=== PATIENT | female | born 1990 | race Caucasian/White ===

== ENCOUNTER 2017-07-25 19:36 | Emergency (ER) | payer MEDICAID ==
[2017-07-25] MEDS: Sodium Chloride 0.9% 500 ML IV ONE (20:21)
[2017-07-25 20:25] LABS: % BASOPHILS 0.1 % (0.0-2.0); % EOSINOPHILS 0.7 % (0.0-5.0); % LYMPHOCYTES 13.9 % (20.0-50.0); % MONOCYTES 3.7 % (2.0-10.0); % NEUTROPHILS 81.6 % (40.0-80.0); HEMOGLOBIN 13.8 gm/dL (12-16); MEAN CELL VOLUME 90.1 fl (81-100); MEAN CORPUSCULAR HEMOGLOBIN 30.4 pg (27.0-31.0); MEAN CORPUSCULAR HGB CONC 33.7 pg (28.0-36.0); MEAN PLATELET VOLUME 7.9 fl; NEUTROPHILE ABSOLUTE 8.5 Th/cmm (1.8-8.0); PLATELET COUNT 255 Th/cmm (150-400); RED BLOOD COUNT 4.55 Mil/cmm (3.80-5.10); RED CELL DISTRIBUTION WIDTH 11.9 % (11.5-20.0); WHITE BLOOD COUNT 10.5 Th/cmm (4.8-10.8)
[2017-07-25] MEDS ORDERED: Acetaminophen 500 MG TAB ONE (20:39)
[2017-07-25 20:40] LABS: ALB/GLOB RATIO 1.4 (1.0-1.8); ALKALINE PHOSPHATASE 64 U/L (34-104); ANION GAP 8.9 (7.0-16.0); BILIRUBIN,TOTAL 0.6 mg/dL (0.3-1.0); BUN - UREA NITROGEN 12 mg/dL (7-25); BUN/CREATININE RATIO 17.1; CALCIUM SERUM 9.6 mg/dL (8.6-10.3); CARBON DIOXIDE 25.7 mEq/L (21.0-31.0); CHLORIDE 102 mEq/L (98-107); CREATININE - SERUM 0.7 mg/dL (0.6-1.2); GLUCOSE 113 mg/dL (70-105); POTASSIUM SERUM 3.6 mEq/L (3.5-5.1); SGOT 12 U/L (13-39); SGPT/ALT 18 U/L (7-52); SODIUM SERUM 133 mEq/L (136-145)
[2017-07-25] MEDS ORDERED: Pantoprazole 40 mg EC Tab PO ONE (20:41)
[2017-07-25] MEDS: Acetaminophen 500 MG TAB PO ONE (20:42)
[2017-07-25] MEDS: Pantoprazole 40 mg EC Tab PO STA (20:43)
[2017-07-25] MEDS ORDERED: metroNIDAZOLE 500mg/NS 100mL 500 MG/100 ML BAG IV ONE (20:49)
[2017-07-25] MEDS: metroNIDAZOLE 500mg/NS 100mL 500 MG/100 ML BAG IV SCH (20:50)
[2017-07-25] MEDS ORDERED: metroNIDAZOLE 500mg/NS 100mL 500 MG/100 ML BAG IV SCH (21:00)
[2017-07-25] MEDS ORDERED: Potassium Chloride 20 mEq ER Tab PO ONE (21:23)
[2017-07-25 21:33] LABS: URINE BILIRUBIN NEGATIVE (NEGATIVE); URINE BLOOD SMALL (NEGATIVE); URINE GLUCOSE (UA) NEGATIVE (NEGATIVE); URINE KETONE NEGATIVE (NEGATIVE); URINE PROTEIN NEGATIVE (NEGATIVE); URINE UROBILINOGEN 0.2 E.U./dL (0.2 - 1.0)
[2017-07-25 21:39] LABS: URINE COLOR YELLOW
[2017-07-25 21:40] LABS: URINE BACTERIA MANY /hpf (NONE SEEN); URINE EPITHELIAL CELLS NONE SEEN /lpf (FEW)
--- NOTE | 2017-07-25 23:40 | ER Physician Documentation ---
DATE OF SERVICE: HISTORY OF PRESENT ILLNESS: A 26-year-old female patient who came to the hospital with abdominal pain, nausea, vomiting, and severe pounding headache. We got the lab results back. She has urinary tract infection. Nitrate in the urine is positive. She has leukocyte esterase large amount, and 6-10 WBCs are present. This clearly tells that she has urinary tract infection. Her electrolytes shows a sodium of 133, potassium 3.6. She was given 40 mEq of potassium. Chloride is 102, CO2 is 25.7, glucose 113, slightly high, but she is obese. She is advised low cholesterol, low saturated fat diet. BUN and creatinine everything is within normal limits. LFT is within normal limits. Magnesium is 12. White count is elevated at 10.5 with a marked shift to the left. Neutrophil count is 81.6 that is markedly elevated. The patient was given Rocephin to start with, and going home on Cipro and Tylenol on a p.r.n. basis. Lymphocytes is 13.9. Hemoglobin and hematocrit is 13.8 and 41. FINAL DIAGNOSES: Urinary tract infection, severe headache, nausea, vomiting, and past history of ____, presently she has obesity. Advised to take low cholesterol, low saturated fat and control diet as per her physician's advice. JOB# [id number]
--- NOTE | 2017-07-26 04:13 | ER Physician Documentation ---
DATE OF SERVICE: 07/25/2017 Seen on 07/25/2017 at 8:10 a.m., which is 20:00 time. The patient is 26-year-old female, date of 1990. ALLERGIES: None known. Weight is 99.37 kilograms. Body surface area is 2.12 cm. BMI is 33.3 kilograms per square meter. This is a 26-year-old female patient who started getting pounding headache since yesterday. She said it started suddenly all over the head and she has some soreness into the throat. She has some nausea and vomiting sensation. She waited. She tried ibuprofen a couple of times, couple of times Tylenol, the last time she took Tylenol was around 12:00 noon. When she came to the Emergency Room where I saw the patient, the history was taken. Kaylin, the nurse was with me at the bedside when I too interviewed her and examined her. HISTORY OF PRESENT ILLNESS: The patient says that occasionally she gets a headache and roughly about 3 weeks ago, she had drank 6 beers a day and normally she does not take any beer. Lately she said she has not taken any alcohol whether this is true or not I do not know. The patient does not take any other drugs, etc. The patient does not have any fever or chills. 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 The patient was given one tablet of 150 mg, which she took. She does not think that tablet has caused the headache, most likely it was fluconazole, Diflucan, which is a patented name. The patient has no significant complaints in the urine. The patient otherwise has some aches in the submandibular area. Neck is not stiff, but she cannot flex it all the way such she cannot touch the chin to the chest wall, but the neck is very soft, supple, and no neck stiffness is noted. The patient still has some whitish discharge. There is no burning, frequency, dysuria. She never had any infection in the urine according to her. She has no gallbladder infection. REVIEW OF SYSTEMS: EYES: No history of double vision, blurring, blindness. No history of nystagmus. No history of wearing glasses. ENDOCRINE: No history of diabetes mellitus, hypo or hyperthyroidism, [place] syndrome, but she does have obesity, weighing 219 pounds. HEART: No history of any chest pain, rheumatic fever, valvular heart disease, pericardial disease, cardiomyopathy. CHEST: The patient does not have any pneumonia, TB or pulmonary embolism. No history of cough. She has some epigastric discomfort when she vomits and when I did her abdominal exam, the patient had pain in that area. GENITOURINARY: Costovertebral angle norris has no pain or tenderness. The patient does not have any ureteric colic or stone in the ureter or the kidneys before. She had no history of any pelvic inflammatory disease in the past according to her. PERSONAL HISTORY: She is . She has two children, one 2-year-old boy and one 1-year-old daughter. FAMILY HISTORY: Grandmother diabetes mellitus. She is , . Her mother has diabetes mellitus. She is alive. She had her birthday yesterday. Happy birthday to her and best wishes for her. PHYSICAL EXAMINATION: VITAL SIGNS: Temperature and vital signs done by the triage nurse showed temperature to be 98.4, pulse of 114, respirations 18, blood pressure 124/69, saturation 99%. Height is 5 feet 8 inches, weighing 219. The patient has Nexplanon implanted in the right arm from October of this year for not having children. She has slightly some vomiting sensation and vomiting and she has some chills and goose bumps. She is 2, para 2. GENERAL: The patient appears to be awake, alert, oriented. She is holding her head with headache. She says she has 10/10 headache. HEENT: Conjunctivae are pink, sclerae white. Jugular venous pressure is normal. She has some tenderness in the left submandibular gland area, which is not swollen, looks to be of the similar size. Throat is normal. Minimal tenderness in the maxillary sinus area, in the frontal sinus area. No meningeal signs definitely could be elicited. No definite Kernig's or Brudzinski sign. EXTREMITIES: No edema, no cyanosis, no petechia, no ecchymosis. GENITOURINARY: Showed did not do a pelvic examination. This was done by her doctor, so this is not done. The patient was examined. Belly is soft. Minimal tenderness noted in the epigastric area. Minimal tenderness noted in the suprapubic area. No tenderness, no guarding, no rigidity. No evidence of any Mckinney's sign. There is no evidence of any acute cholecystitis noted. Otherwise no evidence of any hernia. No evidence of any prominent veins, petechia, ecchymosis. CHEST: Clear. NECK: Trachea being central. Fairly good air entry in both lungs without any rales, rhonchi, or bronchial breathing. ABDOMEN: I already mentioned. HEART: Reveals normal heart sounds. PMI in the fifth intercostal space, midclavicular line. S1, S2 are normal. Fourth heart sound is present. Third heart sound is absent. Second heart sound physiologically split. Central nervous system is within normal limits. CLINICAL IMPRESSION: The patient presented with a pounding headache with nausea, vomiting, goose bump, and chills. Probably the patient has some infection going on. Her temperature was 99 degrees, will recheck it again and the patient has some epigastric discomfort. Do not think that the patient has acute cholecystitis. She has suprapubic pain, maybe she has urinary tract infection and she has yeast infection in the vagina and the patient was given Diflucan. Throat, there is no definite infection, but underlying cyanosis cannot be ruled out. We can get the x-ray of the sinuses to see if there is any evidence of sinus infection if needed, but otherwise the patient will be treated after we get them some lab workup done. We have ordered some CBC, magnesium and urine cultures and Tylenol was given 1 gram, Cipro 500 mg was given after urine was sent for culture and sensitivity, Toradol 30 mg IV push pack is given. Flagyl 500 mg IV q.8h. was ordered, but I will change it to 500 mg 1 dose only and patient was given Zofran 4 mg, Protonix 40 milligrams because the patient has taken 2 or 3 times of ibuprofen and that can make it to be worse and the other cause could the patient has sinus infection, means the patient may be having some pelvic infection or just urinary tract infection. The patient could be having sinus infection or it could be related to the pain for yeast, Diflucan, whether that is causing any discomfort or changes in the blood count, etc. We will check it out. Other diagnosis that she has 2 children, 3 years and family history of diabetes in the mother. Father left her mother when she was 9 years old. They never saw her, but he is still alive according to her. Thank you to Kaylin who is the nurse helped me in examining the patient. She was there with me. [facility]# [id number]
== END 2017-07-25 22:20 | disposition home or self-care (01) ==
LOC: ER 19:36
DX: R51 Headache (principal); R11.2 Nausea with vomiting, unspecified; R68.83 Chills (without fever); R10.13 Epigastric pain
CPT/HCPCS: 99284; 96374; 96375; 36415; 85025; 87086; 81001; 81025; 83735; 80053; J1885; J2405; 90799; J7030; J7040; Z7502; Z7610

== ENCOUNTER 2017-07-26 20:05 | Emergency (ER) | payer MEDICAID ==
--- NOTE | 2017-07-26 20:34 | ED Physician Chart ---
ED Chief Complaint/HPI - Patient Information Date Seen:: 07/26/17 Time Seen:: 20:16 Chief Complaint:: Headache for 2 days. History of Present Illness:: Brought in by private auto with her because of headache for 2 days. Pt was seen by Dr. Arellano last night for the same condition and was diagnosed to have urinary tract infection. Pt has been on antibiotic therapy with metronidazole and doxycycline. Headache is characterized as bifrontal, throbbing , and constant. No fever. No visual changes in terms of blurry vision or diplopia. No weakness or numbness. No mentation change. No ataxia. Pt has had intermittent nausea/vomiting with last episode at about 7 pm today with vomitus consists of primarily of gastric content with ?small amount of blood. Pt had much red colored liquid for hydration prior to her emesis. Last BM about 2 days ago which was normal in color/consistency. No hematochezia or melena. No abdominal pain. Allergies:: Allergies Allergy/AdvReac Type Severity Reaction Status Date / Time No Known Allergies Allergy Verified 07/26/17 20:11 Historian:: Patient Family MD/PCP:: unknown LMP:: irregular with implantable contraceptive. Review:: Nurse's Note Reviewed ED Review of Systems - Review of Systems General/Constitutional: No fever, No weight loss, No weakness, No diaphoresis, No edema, Loss of appetite Skin: No rash, No bruising Head: Headache, No light-headedness Eyes: No loss of vision, No pain, No diplopia ENT: No earache, No nasal drainage, No sore throat Neck: No neck pain, No swelling, No thyromegaly, No stiffness, No mass noted Cardio Vascular: No chest pain, No palpitations, No edema Pulmonary: No SOB, No cough, No wheezing GI: Nausea, Vomiting, No diarrhea, No pain, No melena, No hematochezia, Hematemesis (?) G/U: No dysuria, No frequency, No hematuria Looper Operator: No vaginal discharge, No abnormal vaginal bleed Musculoskeletal: No bone or joint pain Endocrine: No polyuria, No polydipsia Psychiatric: No prior psych history Hematopoietic: No bruising, No lymphadenopathy Allergic/Immuno: No urticaria, No angioedema Neurological: No syncope, No focal symptoms, No weakness, No paresthesia, Headache, No seizure, No dizziness, No confusion, No vertigo ED Past Medical History - Past Medical History Past Medical History: No significant medical hx Family History: Diabetes Melitus (MGM), HTN (MGM) Social History: Non Smoker, No Alcohol, No Drug Use, , Employed, Other ( lives with her .) Employment:: packaging Surgical History: None Psychiatricy History: None Medication: Reviewed Family Medical History - Family Member Paternal Grandmother Ethnicity: Living Status: Hx Family Cancer: No Hx Family Coronary Artery Disease: No Hx Family Congestive Heart Failure: No Hx Family Hypertension: No Hx Family Stroke: No Hx Family Diabetes: Yes Hx Family Seizures: No Hx Family Dementia: No Hx Family AIDS: No Hx Family HIV: No Hx Family COPD: No Hx Family Hepatitis: No Hx Family Psychiatric Problems: No Hx Family Tuberculosis: No ED Physical Exam - Physical Examination General/Constitutional: Awake, Well-developed, well-nourished, Alert, No distress (except c/o severe headache.), GCS 15, Non-toxic appearing, Ambulatory Head: Atraumatic (Tenderness to percussion at bifrontal regions.) Eyes: Lids, conjuctiva normal, PERRL, EOMI Other Eyes comments:: Fundi: not well visualized. Skin: Nl inspection, No rash, No skin lesions, No ecchymosis, Well hydrated, No lymphadenopathy ENMT: External ears, nose nl, TM canals nl, Nasal exam nl, Oropharynx nl Neck: Nontender, Full ROM w/o pain, No nuchal rigidity, No mass, No stridor Respiratory: Nl effort/Exclusion, Clear to Auscultation, No Wheeze/Rhonchi/Rales Cardio Vascular: RRR, No murmur, gallop, rubs GI: No tenderness/rebounding/guarding, No organomegaly, No hernia, Normal BS's, Nondistended Other GI comments:: Obese but soft. : No CVA tenderness Extremities: No tenderness or effusion, normal strength in all extremities, No edema Neuro/Psych: Alert/oriented (oriented x 3), DTR's symmetric, Normal sensory exam , Normal motor strength, Judgement/insight normal, Mood normal, Normal gait, No focal deficits Other Neuro/Psych comments:: CN II to XII are grossly intact. Cerebellar exam (F to N, PHIL): normal. ED Labs/Radiology/EKG Results - Lab Results Results: Laboratory Tests 07/26/17 07/26/17 07/26/17 21:00 21:00 21:00 WBC RBC Hgb Hct MCV MCH MCHC Differential RDW Plt Count MPV Neutrophils % Lymphocytes % Monocytes % Eosinophils % Basophils % PT INR PTT (Actin FS) Sodium Potassium Chloride Carbon Dioxide Anion Gap BUN Creatinine Est GFR ( Amer) Est GFR (Non-Af Amer) BUN/Creatinine Ratio Glucose Calcium Total Bilirubin AST ALT Alkaline Phosphatase Total Protein Albumin Globulin Albumin/Globulin Ratio Urine Source CLEAN C Urine Color YELLOW Urine Clarity HAZY Urine pH 6.0 Ur Specific [place] 1.020 Urine Protein TRACE Urine Glucose (UA) NEGATIVE Urine Ketones NEGATIVE Urine Blood MODERATE H Urine Nitrate NEGATIVE Urine Bilirubin NEGATIVE Urine Urobilinogen 0.2 Ur Leukocyte Esterase LARGE H Urine RBC 5-10 H Urine WBC 50-100 H Ur Epithelial Cells MANY Urine Bacteria MANY Urine Test NEGATIVE Urine Opiates Screen NEGATIVE Urine Methadone Screen NEGATIVE Ur Barbiturates Screen NEGATIVE Ur Tricyclics Screen NEGATIVE Ur Phencyclidine Scrn NEGATIVE Amphetamines Screen NEGATIVE U Methamphetamines Scrn NEGATIVE U Benzodiazepines Scrn NEGATIVE U Cocaine Metab Screen NEGATIVE U Cannabinoids Screen NEGATIVE 07/26/17 07/26/17 07/26/17 21:19 21:19 21:19 WBC 10.5 RBC 4.45 Hgb 13.7 Hct 40.0 L MCV 90.0 MCH 30.7 MCHC Differential 34.1 RDW 12.0 Plt Count 250 MPV 8.1 Neutrophils % 82.8 H Lymphocytes % 13.9 L Monocytes % 2.5 Eosinophils % 0.2 Basophils % 0.6 PT 11.0 INR 1.06 PTT (Actin FS) 24.2 L Sodium 131 L Potassium 3.3 L Chloride 102 Carbon Dioxide 22.8 Anion Gap 9.5 BUN 11 Creatinine 0.6 Est GFR ( Amer) > 60.0 Est GFR (Non-Af Amer) > 60.0 BUN/Creatinine Ratio 18.3 Glucose 99 Calcium 9.2 Total Bilirubin 0.6 AST 11 L ALT 16 Alkaline Phosphatase 60 Total Protein 7.6 Albumin 4.4 Globulin 3.2 Albumin/Globulin Ratio 1.4 Urine Source Urine Color Urine Clarity Urine pH Ur Specific [place] Urine Protein Urine Glucose (UA) Urine Ketones Urine Blood Urine Nitrate Urine Bilirubin Urine Urobilinogen Ur Leukocyte Esterase Urine RBC Urine WBC Ur Epithelial Cells Urine Bacteria Urine Test Urine Opiates Screen Urine Methadone Screen Ur Barbiturates Screen Ur Tricyclics Screen Ur Phencyclidine Scrn Amphetamines Screen U Methamphetamines Scrn U Benzodiazepines Scrn U Cocaine Metab Screen U Cannabinoids Screen - Radiology Results Results: Head CT without contrast: No intracranial hemorrhage, mass effect or edema. No evidence of acute cortical stroke. Visualized sinuses and mastoid air cells are clear. Official report per Dr. Guillermo Law, radiologist. ED Septic Shock - . Is Septic Shock (SBP<90, OR Lactate>4 mmol\L) present?: No ED Reassessment (Disposition) - Reassessment Reassessment:: 2320 Pt has been repeatedly evaluated. Pt appears to be comfortable. Pt states that she still has headache and requests more pain control. NG tube was inserted earlier with suctioning that did not demonstrate any sign of active bleeding or old blood. 005 Pt remains well. No CUENCA. No N/V/D. Lab and CT findings have been reviewed with pt. Pt requests to go home now and does not want further observation/ management in hospital. Aftercare instructions have been given. Her will drive her home. Reassessment Condition:: Improved - Diagnosis Diagnosis:: UTI, stable. Tension headache, stable and currently asymptomatic. Mild hypokalemia, stable. - Aftercare/Follow up Instructions Aftercare/Follow-Up Instructions:: Refer to Discharge Instructions Notes:: Continue present care, including current antibiotic therapy as prescribed by Dr. Arellano. Bedrest for today. Headache instructions given. Drowsiness precautions given with the use of Dilaudid. May take Motrin 200 mg tab 3 to 4 tabs po q8h prn pain, not to take first dose at least 6 hours after Toradol was given here. Increase oral intake of potassium rich foodstuffs such as banana, etc. F/U with Dr. Gustafson or PCP of pt's choice in one day for recheck with repeat lab studies: BMP, urinalysis. Return to ER immediately if condition worsens or if any further questions/problems. Medication Prescribed:: None - Patient Disposition Discharge/Transfer:: Home Time:: 01:00 Condition at Disposition:: Stable, Improved ED Discharge Plan - Patient Disposition Admit/Discharge/Transfer: PT DISCHARGED HOME Condition at Disposition: Improved Instructions: Tension Headache, [id number], Urinary Tract Infection, Easy-to- Read Additional Instructions: Continue present care, including current antibiotic therapy. May take Motrin 200mg over the counter, 3 to 4 tabs by mouth every 8 hours for pain. Not to take first dose until 6 hours after this ER visit because Toradol was given here. Increase oral intake of potassium rich foods such as bananas, etc. Follow up with Dr. Gustafson or Primary Care Provider of choice in one day for recheck with repeat lab studies. Return to ED immediately if condition worsens or if any further questions/problems. Forms: Work Release Form
[2017-07-26 21:30] LABS: % BASOPHILS 0.6 % (0.0-2.0); % EOSINOPHILS 0.2 % (0.0-5.0); % LYMPHOCYTES 13.9 % (20.0-50.0); % MONOCYTES 2.5 % (2.0-10.0); % NEUTROPHILS 82.8 % (40.0-80.0); HEMOGLOBIN 13.7 gm/dL (12-16); MEAN CORPUSCULAR HEMOGLOBIN 30.7 pg (27.0-31.0); MEAN CORPUSCULAR HGB CONC 34.1 pg (28.0-36.0); MEAN PLATELET VOLUME 8.1 fl; NEUTROPHILE ABSOLUTE 8.6 Th/cmm (1.8-8.0); PLATELET COUNT 250 Th/cmm (150-400); RED BLOOD COUNT 4.45 Mil/cmm (3.80-5.10); WHITE BLOOD COUNT 10.5 Th/cmm (4.8-10.8)
[2017-07-26] MEDS ORDERED: HYDROmorphone 1 mg/mL 1mL Syr ONE (21:32)
[2017-07-26 21:33] LABS: URINE BILIRUBIN NEGATIVE (NEGATIVE); URINE BLOOD MODERATE (NEGATIVE); URINE GLUCOSE (UA) NEGATIVE (NEGATIVE); URINE KETONE NEGATIVE (NEGATIVE); URINE PROTEIN TRACE mg/dL (NEGATIVE); URINE UROBILINOGEN 0.2 E.U./dL (0.2 - 1.0)
[2017-07-26 21:39] LABS: INR 1.06 (0.5-1.4)
[2017-07-26] MEDS: HYDROmorphone 1 mg/mL 1mL Syr IVP STA (21:40)
[2017-07-26 21:43] LABS: ALB/GLOB RATIO 1.4 (1.0-1.8); ALKALINE PHOSPHATASE 60 U/L (34-104); ANION GAP 9.5 (7.0-16.0); BILIRUBIN,TOTAL 0.6 mg/dL (0.3-1.0); BUN - UREA NITROGEN 11 mg/dL (7-25); BUN/CREATININE RATIO 18.3; CALCIUM SERUM 9.2 mg/dL (8.6-10.3); CARBON DIOXIDE 22.8 mEq/L (21.0-31.0); CHLORIDE 102 mEq/L (98-107); CREATININE - SERUM 0.6 mg/dL (0.6-1.2); GLUCOSE 99 mg/dL (70-105); POTASSIUM SERUM 3.3 mEq/L (3.5-5.1); SGOT 11 U/L (13-39); SGPT/ALT 16 U/L (7-52); SODIUM SERUM 131 mEq/L (136-145)
[2017-07-26 21:45] LABS: AMPHETAMINE URINE NEGATIVE (NEGATIVE); BARBITURATES URINE NEGATIVE (NEGATIVE); METHADONE URINE NEGATIVE (NEGATIVE)
[2017-07-26 21:47] LABS: URINE COLOR YELLOW
[2017-07-26 21:49] LABS: URINE EPITHELIAL CELLS MANY /lpf (FEW)
[2017-07-26 21:50] LABS: URINE BACTERIA MANY /hpf (NONE SEEN)
[2017-07-26 21:55] LABS: URINE WBC 50-100 /hpf (0-5)
[2017-07-26] MEDS ORDERED: Potassium Chloride 20 mEq ER Tab PO ONE (23:06)
[2017-07-26] MEDS: Potassium Chloride 20 mEq ER Tab PO ONE (23:08)
--- NOTE | 2017-07-27 07:33 | Diagnostic Imaging Report ---
CT scan of the brain without contrast History: Headache Total DLP equals 704 CTDI equals 38.3 Axial sections were obtained from the base of the skull to the vertex. There is a normal ventricular system size. No focal parenchymal lesions are seen. No evidence of any mass effect or shift of midline structures. No extra-axial masses or abnormal fluid collections. Impression: Negative examination
== END 2017-07-27 01:23 | disposition home or self-care (01) ==
LOC: ER 20:05
DX: G44.209 Tension-type headache, unspecified, not intractable (principal); N39.0 Urinary tract infection, site not specified; E87.6 Hypokalemia
CPT/HCPCS: 99285; 96374; 96375; 70450; 36415; 80307; 85025; 85610; 87086; 81001; 81025; 80053; J1885; J2405; J1170; Z7610